=== PATIENT | male | born 1985 | race Two or more races ===

== ENCOUNTER 2022-12-31 21:04 | Emergency (ER) | payer MEDICAID, OTHER ==
[~2022-12-31] VITALS: Ht 177.8 cm; Wt 84.0 kg
[2022-12-31 21:32] VITALS: BP 139/89
[2022-12-31] MEDS ORDERED: CEPH500C PO (23:30)
[2022-12-31] MEDS ORDERED: IBUP-1456 PO (23:30)
== END 2023-01-01 00:04 | disposition home or self-care (01) ==
LOC: ER 21:04
DX: S61.422A Laceration with foreign body of left hand, initial encounter (principal); F17.210 Nicotine dependence, cigarettes, uncomplicated; W26.0XXA Contact with knife, initial encounter; Y93.89 Activity, other specified; Y92.89 Other specified places as the place of occurrence of the external cause; Y99.8 Other external cause status
CPT/HCPCS: 12002